=== PATIENT | male | born 1975 | race Caucasian/White ===

== ENCOUNTER 2019-08-02 12:53 | Inpatient (IN) | payer OTHER, SELFPAY ==
[~2019-08-02] VITALS: Ht 190.5 cm; Wt 149.4 kg
[2019-08-02 13:16] VITALS: Ht 190.5 cm; Wt 149.4 kg
[2019-08-02 15:07] LABS: CALCIUM 8.3 mg/dL (8.5-10.1); CARBON DIOXIDE 24.4 mmol/L (21-32); CREATININE SERUM 2.2 mg/dL (0.7-1.3); POTASSIUM SERUM 4.4 mmol/L (3.5-5.1)
[2019-08-02 15:12] LABS: ALBUMIN 2.7 g/dL (3.4-5.0); BILIRUBIN TOTAL 0.4 mg/dL (0.20-1.00); C REACTIVE PROTEIN 9.8 mg/dL (<=0.9); TOTAL PROTEIN, SERUM 7.4 g/dL (6.4-8.2)
[2019-08-02 15:16] VITALS: BP 116/67
[2019-08-02 15:21] LABS: BASOPHIL % 0.3 % (0-2); PLATELET COUNT 203 x10^3mcL (130-400); RED CELL DISTRIBUTION WIDTH 14.5 % (11.5-14.5)
[2019-08-02] MEDS ORDERED: ASPIR 8181 MG PO (15:29)
[2019-08-02] MEDS ORDERED: TRA100 (15:29)
[2019-08-02 15:37] LABS: UA SPECIFIC GRAVITY >=1.030 (1.005-1.035); microscopic required? YES; urine erythrocyte 1+ (NEGATIVE)
[2019-08-02 17:15] VITALS: BP 107/60
[2019-08-02 21:50] VITALS: BP 98/65
[2019-08-02 23:30] VITALS: BP 150/76
[2019-08-03 06:30] VITALS: BP 150/76
[2019-08-03 07:05] LABS: CALCIUM 8.4 mg/dL (8.5-10.1); CARBON DIOXIDE 23.8 mmol/L (21-32); CREATININE SERUM 1.7 mg/dL (0.7-1.3); POTASSIUM SERUM 4.4 mmol/L (3.5-5.1)
[2019-08-03 08:00] VITALS: BP 107/88; BP 128/73
[2019-08-03 09:12] LABS: PLATELET COUNT 223 x10^3mcL (130-400)
[2019-08-03 09:13] LABS: RED CELL DISTRIBUTION WIDTH 14.9 % (11.5-14.5)
[2019-08-03 11:04] LABS: ATYPICAL LYMPH 0 %; BAND NEUTROPHIL 2 % (0-10); SEGMENTED NEUTROPHILS 50 % (37-75)
[2019-08-03 11:05] LABS: BASOPHIL 0 % (0-2); METAMYELOCTE 0 % (0-2); MONOCYTE 24 % (0-7); MYELOCYTE 0 % (0-2); rbc morphology (normal/abnorm) ABNORMAL (NORMAL)
[2019-08-03 11:50] VITALS: BP 128/93
[2019-08-03 17:23] VITALS: BP 112/86
[2019-08-03 21:00] VITALS: BP 146/78
[2019-08-04 06:28] VITALS: BP 128/74
[2019-08-04 07:00] LABS: CALCIUM 8.3 mg/dL (8.5-10.1); CARBON DIOXIDE 23.8 mmol/L (21-32); CREATININE SERUM 1.5 mg/dL (0.7-1.3); POTASSIUM SERUM 4.1 mmol/L (3.5-5.1)
[2019-08-04 07:55] LABS: BASOPHIL % 0.2 % (0-2); PLATELET COUNT 260 x10^3mcL (130-400); RED CELL DISTRIBUTION WIDTH 14.2 % (11.5-14.5)
[2019-08-04 09:00] VITALS: BP 142/60
[2019-08-04 12:30] VITALS: BP 150/74
[2019-08-04 18:34] VITALS: BP 147/82
[2019-08-04 21:03] VITALS: BP 155/84; BP 175/84
[2019-08-05 06:09] VITALS: BP 135/82
[2019-08-05 06:46] LABS: BASOPHIL % 0.2 % (0-2); PLATELET COUNT 303 x10^3mcL (130-400)
[2019-08-05 06:55] LABS: RED CELL DISTRIBUTION WIDTH 14.6 % (11.5-14.5)
[2019-08-05 07:07] LABS: CALCIUM 8.5 mg/dL (8.5-10.1); CARBON DIOXIDE 24.6 mmol/L (21-32); CHLORIDE SERUM 104 mmol/L (98-107); CREATININE SERUM 1.3 mg/dL (0.7-1.3); GFR1 > 60 mL/min; GLUCOSE SERUM 186 mg/dL (74-106); POTASSIUM SERUM 4.2 mmol/L (3.5-5.1); SODIUM SERUM 137 mmol/L (136-145)
[2019-08-05 09:00] VITALS: BP 139/69
[2019-08-05 12:00] VITALS: BP 128/68
[2019-08-05 17:00] VITALS: BP 129/72
[2019-08-05 20:39] VITALS: BP 148/78
[2019-08-06 06:00] VITALS: BP 138/78
[2019-08-06 07:22] LABS: BASOPHIL % 0.3 % (0-2); PLATELET COUNT 391 x10^3mcL (130-400)
[2019-08-06 07:30] LABS: CREATININE SERUM 1.5 mg/dL (0.7-1.3); POTASSIUM SERUM 3.7 mmol/L (3.5-5.1)
[2019-08-06 07:37] LABS: RED CELL DISTRIBUTION WIDTH 14.8 % (11.5-14.5)
[2019-08-06 09:34] VITALS: BP 138/78
[2019-08-06 20:34] VITALS: BP 142/78
[2019-08-07 06:07] VITALS: BP 148/78
[2019-08-07 07:23] LABS: BASOPHIL % 0.5 % (0-2)
[2019-08-07 07:30] LABS: PLATELET COUNT 447 x10^3mcL (130-400); RED CELL DISTRIBUTION WIDTH 14.6 % (11.5-14.5)
[2019-08-07 07:43] LABS: CALCIUM 8.6 mg/dL (8.5-10.1); CARBON DIOXIDE 24.2 mmol/L (21-32); CHLORIDE SERUM 103 mmol/L (98-107); CREATININE SERUM 1.3 mg/dL (0.7-1.3); GFR1 > 60 mL/min; GLUCOSE SERUM 192 mg/dL (74-106); POTASSIUM SERUM 3.9 mmol/L (3.5-5.1); SODIUM SERUM 138 mmol/L (136-145)
[2019-08-07 07:49] VITALS: BP 141/87
[2019-08-07 10:24] LABS: AMYLASE 85 U/L (25-115); LIPASE 297 IU/L (73-393)
[2019-08-07 12:45] VITALS: BP 168/83
[2019-08-07 17:51] VITALS: BP 148/87
[2019-08-07 22:33] VITALS: BP 141/65
[2019-08-08 05:54] VITALS: BP 135/49
[2019-08-08 07:20] LABS: CALCIUM 8.7 mg/dL (8.5-10.1); CARBON DIOXIDE 27.2 mmol/L (21-32); CREATININE SERUM 1.4 mg/dL (0.7-1.3); POTASSIUM SERUM 3.5 mmol/L (3.5-5.1)
[2019-08-08 08:01] LABS: BASOPHIL % 0.3 % (0-2)
[2019-08-08 08:03] LABS: PLATELET COUNT 502 x10^3mcL (130-400); RED CELL DISTRIBUTION WIDTH 14.7 % (11.5-14.5)
[2019-08-08 08:30] VITALS: BP 143/85
[2019-08-08 12:30] VITALS: BP 155/90
[2019-08-08 17:30] VITALS: BP 139/83
[2019-08-08 23:12] VITALS: BP 135/71
[2019-08-09 06:00] VITALS: BP 144/91
[2019-08-09 07:07] LABS: CALCIUM 8.7 mg/dL (8.5-10.1); CREATININE SERUM 1.4 mg/dL (0.7-1.3); POTASSIUM SERUM 3.4 mmol/L (3.5-5.1)
[2019-08-09 07:14] LABS: BASOPHIL % 0.2 % (0-2); RED CELL DISTRIBUTION WIDTH 14.5 % (11.5-14.5)
[2019-08-09 07:22] LABS: PLATELET COUNT 577 x10^3mcL (130-400)
[2019-08-09 08:30] VITALS: BP 149/92
[2019-08-09 08:50] VITALS: BP 144/91
[2019-08-09 12:30] VITALS: BP 146/77
[2019-08-09 16:00] VITALS: BP 150/87
[2019-08-09 21:06] VITALS: BP 149/92
[2019-08-10 06:00] VITALS: BP 158/84
[2019-08-10 06:14] LABS: CALCIUM 8.9 mg/dL (8.5-10.1); CARBON DIOXIDE 25.5 mmol/L (21-32); CREATININE SERUM 1.4 mg/dL (0.7-1.3); POTASSIUM SERUM 3.4 mmol/L (3.5-5.1)
[2019-08-10 06:38] LABS: BASOPHIL % 0.1 % (0-2); RED CELL DISTRIBUTION WIDTH 14.5 % (11.5-14.5)
[2019-08-10 06:46] LABS: PLATELET COUNT 646 x10^3mcL (130-400)
[2019-08-10 09:15] VITALS: BP 156/85
[2019-08-10 12:14] VITALS: BP 138/83
[2019-08-10 16:58] VITALS: BP 152/68
[2019-08-10 20:11] VITALS: BP 142/76
[2019-08-11 06:33] VITALS: BP 138/77
[2019-08-11 07:20] LABS: BASOPHIL % 0.3 % (0-2)
[2019-08-11 07:58] LABS: ALKALINE PHOSPHATASE 56 U/L (46-116); ALT/SGPT 36 U/L (16-63); AST/SGOT 36 U/L (15-37); BILIRUBIN TOTAL 0.4 mg/dL (0.20-1.00); C REACTIVE PROTEIN 10.5 mg/dL (<=0.9); CALCIUM 8.7 mg/dL (8.5-10.1); CARBON DIOXIDE 25.8 mmol/L (21-32); CHLORIDE SERUM 104 mmol/L (98-107); CREATININE SERUM 1.3 mg/dL (0.7-1.3); GFR1 > 60 mL/min; GLUCOSE SERUM 225 mg/dL (74-106); POTASSIUM SERUM 3.5 mmol/L (3.5-5.1); SODIUM SERUM 138 mmol/L (136-145); TOTAL PROTEIN, SERUM 7.4 g/dL (6.4-8.2)
[2019-08-11 07:59] LABS: ALBUMIN 1.9 g/dL (3.4-5.0)
[2019-08-11 08:09] LABS: RED CELL DISTRIBUTION WIDTH 14.6 % (11.5-14.5)
[2019-08-11 08:10] LABS: PLATELET COUNT 665 x10^3mcL (130-400)
[2019-08-11 09:12] VITALS: BP 152/83
[2019-08-11 12:47] VITALS: BP 142/85
[2019-08-11 16:30] VITALS: BP 155/89
[2019-08-11 20:00] VITALS: BP 142/85
[2019-08-12 05:58] VITALS: BP 137/84
[2019-08-12 07:02] LABS: BASOPHIL % 0.2 % (0-2)
[2019-08-12 07:10] LABS: PLATELET COUNT 664 x10^3mcL (130-400); RED CELL DISTRIBUTION WIDTH 14.6 % (11.5-14.5)
[2019-08-12 07:18] LABS: C REACTIVE PROTEIN 8.1 mg/dL (<=0.9); CALCIUM 8.6 mg/dL (8.5-10.1); CARBON DIOXIDE 25.3 mmol/L (21-32); CHLORIDE SERUM 104 mmol/L (98-107); CREATININE SERUM 1.2 mg/dL (0.7-1.3); GFR1 > 60 mL/min; GLUCOSE SERUM 253 mg/dL (74-106); POTASSIUM SERUM 4.8 mmol/L (3.5-5.1); SODIUM SERUM 139 mmol/L (136-145)
[2019-08-12 08:00] VITALS: BP 135/86
[2019-08-12 13:09] VITALS: BP 145/85
[2019-08-12 17:55] VITALS: BP 148/86
[2019-08-12 19:32] VITALS: BP 158/87
[2019-08-13 11:24] VITALS: BP 135/76
== END 2019-08-13 15:05 | disposition other institution (70) | DRG 177 ==
LOC: ED 12:53 → DU 14:30
PROVIDERS: Emergency Medicine; Internal Medicine; ADMIT Internal Medicine
DX: U07.1 COVID-19 (principal); J96.01 Acute respiratory failure with hypoxia; J12.89 Other viral pneumonia; B19.10 Unspecified viral hepatitis B without hepatic coma; N17.9 Acute kidney failure, unspecified; K74.60 Unspecified cirrhosis of liver; E66.9 Obesity, unspecified; I12.9 Hypertensive chronic kidney disease with stage 1 through stage 4 chronic kidney disease, or unspecified chronic kidney disease; N18.9 Chronic kidney disease, unspecified; E11.22 Type 2 diabetes mellitus with diabetic chronic kidney disease; Z91.14 Patient's other noncompliance with medication regimen; Z68.39 Body mass index [BMI] 39.0-39.9, adult; Z79.899 Other long term (current) drug therapy
CPT/HCPCS: 36600; 82962; 83880; 85378; 87046; 87046-59; 87804; G0378; J0456; J0696; J1650; J1815; J1940; J2543; J3490; J3535; J7030; J7050; J7060; Q0092